=== PATIENT | female | born 1950 | race Caucasian/White ===

== ENCOUNTER 2023-11-05 15:24 | Emergency (ER) | payer OTHER ==
[~2023-11-05] VITALS: Ht 157.5 cm; Wt 67.6 kg
[~2023-11-05 15:24] MED LIST: CALTRATE 600600 MG
[2023-11-05 17:58] LABS: HEMATOCRIT 40.4 % (36.0-45.00); HEMOGLOBIN 13.8 g/dL (12.0-15.00); MEAN CELL VOLUME 92.3 fL (80.00-100.00); MEAN CORPUSCULAR HEMOGLOBIN 31.6 pg (27.00-32.0); MEAN CORPUSCULAR HGB CONC 34.2 g/dl (32.0-36.0); PLATELET COUNT 238 K/uL (150-450); RED BLOOD COUNT 4.38 M/uL (4.00-6.00); RED CELL DISTRIBUTION WIDTH 14.3 % (11.5-14.5)
== END 2023-11-05 20:20 | disposition home or self-care (01) ==
LOC: ER 15:24
PROVIDERS: General Practice
DX: M79.659 Pain in unspecified thigh (principal); R53.81 Other malaise; E11.9 Type 2 diabetes mellitus without complications; Z88.1 Allergy status to other antibiotic agents